=== PATIENT | female | born 1945 | race Asian ===

== ENCOUNTER 2023-03-29 08:55 | Emergency (ER) | payer MEDICAID ==
[~2023-03-29] VITALS: Ht 144.8 cm; Wt 54.4 kg
[~2023-03-29 08:55] MED LIST: ASPI-1155 PO; ATENOLOL; HYDROCHLOROTHIAZIDE; [UNRECOGNIZED DRUG - OTHER]
[2023-03-29 09:13] VITALS: BP_SYST 131; PULSE 77; RESP 16; TEMP 97.4; O2SAT 98
[2023-03-29 10:38] LABS: BILIRUBIN,URINE NEGATIVE (NEGATIVE); BLOOD, URINE 3+ (NEGATIVE); CLARITY/URINE CLOUDY (CLEAR); COLOR,URINE RED (YELLOW); GLUCOSE,URINE TRACE (NEGATIVE); KETONES,URINE TRACE (NEGATIVE); LEUKOCYTE ESTERASE ,URINE TRACE (NEGATIVE); NITRITE, URINE POSITIVE (NEGATIVE); PROTEIN URINE 2+ (NEGATIVE)
[2023-03-29 11:00] LABS: BACTERIA,URINE MANY /HPF (None Seen); RBC,URINE 50-80 /HPF (0-3); WBC,URINE 0-3 /HPF (0-3)
[2023-03-29] MEDS ORDERED: NITR-85 PO (11:36)
[2023-03-29 11:55] VITALS: BP_SYST 138; PULSE 74; RESP 16; TEMP 98.1; O2SAT 99
== END 2023-03-29 11:57 | disposition home or self-care (01) ==
LOC: SED 08:55
DX: N39.0 Urinary tract infection, site not specified (principal); R31.9 Hematuria, unspecified; R30.0 Dysuria; R51.9 Headache, unspecified; E11.9 Type 2 diabetes mellitus without complications; I10 Essential (primary) hypertension; Z88.0 Allergy status to penicillin; Z79.899 Other long term (current) drug therapy
CPT/HCPCS: 81000; 81001; 81015; 87086; 99283